=== PATIENT | male | born 1970 | race Two or more races ===

== ENCOUNTER 2016-10-31 01:18 | Emergency (ER) | payer OTHER ==
[~2016-10-31] VITALS: Ht 182.9 cm; Wt 127.0 kg
[2016-10-31] MEDS ORDERED: CYCLOBENZAPRINE10 MG ORAL (03:09)
[2016-10-31] MEDS ORDERED: IBUPROFEN600 MG ORAL (03:09)
[2016-10-31 03:11] VITALS: BP 132/87
[2016-10-31 03:12] VITALS: BP 132/87
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
== END 2016-10-31 03:12 | disposition home or self-care (01) ==
LOC: EMR 01:45
DX: S20.222A Contusion of left back wall of thorax, initial encounter (principal); S63.502A Unspecified sprain of left wrist, initial encounter; S80.02XA Contusion of left knee, initial encounter; Y04.8XXA Assault by other bodily force, initial encounter; Y99.0 Civilian activity done for income or pay; Z88.0 Allergy status to penicillin
CPT/HCPCS: 29260; 72020; 99284